=== PATIENT | male | born 1980 | race Caucasian/White ===

== ENCOUNTER 2017-01-13 17:03 | Emergency (ER) | payer OTHER ==
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
[2017-01-13 17:29] LABS: BASOPHILS % (AUTO) 0.5 % (0-3); EOSINOPHILS % (AUTO) 1.4 % (0-5); Mean Corpuscular Volume 88.1 fL (81-100); NEUTROPHILS % (AUTO) 68.2 % (40-74); Platelet Count 265 bil/L (150-400)
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
== END 2017-01-13 19:49 ==
LOC: SED 17:03 → EDBD 17:03 → SED 19:49
DX: S62.102A Fracture of unspecified carpal bone, left wrist, initial encounter for closed fracture (principal); S02.2XXA Fracture of nasal bones, initial encounter for closed fracture; V47.5XXA Car driver injured in collision with fixed or stationary object in traffic accident, initial encounter; Y92.410 Unspecified street and highway as the place of occurrence of the external cause; Y93.89 Activity, other specified; Y99.8 Other external cause status; M79.641 Pain in right hand; M25.562 Pain in left knee; M54.2 Cervicalgia; Z87.2 Personal history of diseases of the skin and subcutaneous tissue
CPT/HCPCS: 29125; 36415; 70450; 71010; 72125; 72170; 73110; 73130; 73562; 80053; 83690; 85025; 94799; 99285; G0390; G0480